=== PATIENT | female | born 1990 | race Caucasian/White ===

== ENCOUNTER → 2019-02-28 | Outpatient (CLI) | payer BC ==
--- NOTE | 2019-02-28 11:57 | Diagnostic Imaging Report ---
INDICATION: survey. TECHNIQUE: Multiple real-time grayscale images were obtained over the gravid uterus. COMPARISON: None. FINDINGS: There is a single live fetus in a breech presentation. heart rate was recorded at 165 beats per minute. Placenta is anterior. Amniotic fluid volume is normal. Cervical length is 4.1 cm. survey does show kidneys, bladder and stomach to be unremarkable. brain is unremarkable. There is a three-vessel cord with normal insertion. spine is unremarkable. Four-chamber heart view is somewhat limited due to position. Biometrical measurements are as follows: Biparietal 4.83 cm, age 20 weeks 5 days. Head circumference 17.62 cm, age 20 weeks 1 days. Abdominal circumference 15.46 cm, age 20 weeks 5 days. Femur length 3.34 cm, age 20 weeks 4 days. Sonographic estimate age: 20 weeks 4 days. Sonographic estimated date of delivery: 07/14/2019. Estimated Weight: 359 gm (+/- 52 gm). LMP percentile: 59%. heart rate: 165 beats per minute. number: 1 of 1. IMPRESSION: Single live IUP 20 weeks 4 days gestational age. Estimated date of confinement sonographically is 07/14/2019. The survey is unremarkable although four-chamber heart view is not well seen due to position and followup could be performed. Dictated by: Dictated on workstation # [id number]
== END ==
LOC: RAD 10:03
PROVIDERS: ATTEND Obstetrics & Gynecology
DX: Z36.89 Encounter for other specified antenatal screening (principal); Z3A.20 20 weeks gestation of pregnancy
CPT/HCPCS: 76805

== ENCOUNTER → 2019-04-25 | Outpatient (CLI) | payer BC ==
--- NOTE | 2019-04-25 12:42 | Diagnostic Imaging Report ---
INDICATION: Follow up heart. TECHNIQUE: Multiple real-time grayscale images were obtained over the gravid uterus. COMPARISON: 02/28/2019. FINDINGS: There is a single live fetus in a cephalic presentation. heart rate was recorded at 146 beats per minute. Placenta is anterior. Amniotic fluid volume is normal. four-chamber heart view is well seen on today's study. Cervical length is approximately 4 cm. IMPRESSION: Single live fetus. Four-chamber heart view is well seen on today's exam. Dictated by: Dictated on workstation # [id number]
== END ==
LOC: RAD 10:36
PROVIDERS: ATTEND Obstetrics & Gynecology
DX: Z34.92 Encounter for supervision of normal pregnancy, unspecified, second trimester (principal); Z3A.00 Weeks of gestation of pregnancy not specified
CPT/HCPCS: 76816

== ENCOUNTER 2019-07-13 02:16 | Inpatient (IN) | payer BC, MEDICAID ==
[~2019-07-13] VITALS: Ht 152.4 cm; Wt 60.4 kg
[2019-07-13] VITALS (11 sets, daily range): BP systolic 99–140; BP diastolic 54–73
--- NOTE | 2019-07-13 02:22 | NUR ---
MALLY BOLES presented to unit via wc from ED, accompanied by staff and family, with c/o CONTRACTIONS. MALLY BOLES weighed, gowned, voided, and to bed. EFHM and TOCO applied, VS taken. MALLY BOLES oriented to bed controls, call light, TV, heat, and A/C controls.
--- NOTE | 2019-07-13 02:40 | NUR ---
Dr. Rodríguez called regarding pt, no answer.
--- NOTE | 2019-07-13 02:41 | NUR ---
Dr. gutierrez called and updated on pt's status and cervical dilation, admit orders received.
[2019-07-13] MEDS ORDERED: D5 LR IV SOLUTION 1,000 ML IV ONE (02:42)
--- NOTE | 2019-07-13 02:46 | NUR ---
dr. sigala called back and will take pt. dr. gutierrez called and updated that dr. sigala will be here for delivery
--- NOTE | 2019-07-13 02:48 | NUR ---
SROM noted, clear fluid, . Nurses present at this time, deborah Rivera, jessica benz and jenelle guadalupe rn. Dr. sigala called and updated on pt's status, she is enroute.
[2019-07-13] MEDS ORDERED: OXYTOCIN/NORMAL SALINE 500 ML IV ONE (02:52)
[2019-07-13] MEDS ORDERED: D5 LR IV SOLUTION 1,000 ML IV SCH (03:02)
[2019-07-13] MEDS ORDERED: KETOROLAC 30 MG/ML VIAL ONE (03:08)
[2019-07-13 03:10] LABS: BASOPHILS % (AUTO) 0 % (0-10); EOSINOPHILS # (AUTO) 0.1 10^3/uL (0.0-0.3); EOSINOPHILS % (AUTO) 1 % (0-10); HEMATOCRIT 39 % (35-52); HEMOGLOBIN 13.1 G/DL (11.5-16.0); LYMPHOCYTES # (AUTO) 3.2 X 10^3 (1.0-4.0); LYMPHOCYTES % (AUTO) 20 % (12-44); MEAN CORPUSCULAR HEMOGLOBIN 30 PG (25-34); MEAN CORPUSCULAR HGB CONC 34 G/DL (32-36); MEAN CORPUSCULAR VOLUME 89 FL (80-99); MEAN PLATELET VOLUME 11.1 FL (7.4-10.4); MONOCYTES % (AUTO) 7 % (0-12); NEUTROPHILS # (AUTO) 11.6 X 10^3 (1.8-7.8); NEUTROPHILS % (AUTO) 73 % (42-75); PLATELET COUNT 223 10^3/uL (130-400); WHITE BLOOD COUNT 15.9 10^3/uL (4.3-11.0)
[2019-07-13] MEDS ORDERED: OXYTOCIN/NORMAL SALINE 500 ML IV SCH (03:12)
[2019-07-13] MEDS ORDERED: TETANUS,DIPTH,PERTUSS P/F (BOOSTRIX) 0.5 ML VIAL IM ONE (03:15)
[2019-07-13] MEDS ORDERED: KETOROLAC 30 MG/ML VIAL IVP ONE (03:15)
[2019-07-13] MEDS ORDERED: MEASLES,MUMPS,RUBELLA 1 EA INJ SQ ONE (03:15)
[2019-07-13] MEDS ORDERED: BENZOCAINE/MENTHOL (DERMOPLAST) 56 ML CAN TP PRN (03:15)
[2019-07-13] MEDS ORDERED: MISOPROSTOL 200 MCG (CYTOTEC) TABLET PO PRN (03:15)
[2019-07-13] MEDS ORDERED: WITCH HAZEL(TUCKS) 40 EA JAR TOP PRN (03:15)
--- NOTE | 2019-07-13 03:15 | History & Physical-OB ---
OB - Chief Complaint & HPI Date/Time Date of Admission: Date of Admission: Jul 13, 2019 at 02:48 Allergies and Home Medications Allergies Coded Allergies: No Known Drug Allergies (Unverified , 07/13/19) Home Medications No Active Prescriptions or Reported Meds OB - Admission Exam Physical Exam Vitals: Vital Signs 07/13/19 02:43 Temp 36.3 Pulse 76 Resp 20 B/P (MAP) 134/69 (90) O2 Delivery Room Air Labs Laboratory Tests Test 07/13/19 02:48 Range/Units White Blood Count 15.9 H 4.3-11.0 10^3/uL Red Blood Count 4.35 4.35-5.85 10^6/uL Hemoglobin 13.1 11.5-16.0 G/DL Hematocrit 39 35-52 % Mean Corpuscular Volume 89 80-99 FL Mean Corpuscular Hemoglobin 30 25-34 PG Mean Corpuscular Hemoglobin Concent 34 32-36 G/DL Red Cell Distribution Width 15.0 H 10.0-14.5 % Platelet Count 223 130-400 10^3/uL Mean Platelet Volume 11.1 H 7.4-10.4 FL Neutrophils (%) (Auto) 73 42-75 % Lymphocytes (%) (Auto) 20 12-44 % Monocytes (%) (Auto) 7 0-12 % Eosinophils (%) (Auto) 1 0-10 % Basophils (%) (Auto) 0 0-10 % Neutrophils # (Auto) 11.6 H 1.8-7.8 X 10^3 Lymphocytes # (Auto) 3.2 1.0-4.0 X 10^3 Monocytes # (Auto) 1.0 0.0-1.0 X 10^3 Eosinophils # (Auto) 0.1 0.0-0.3 10^3/uL Basophils # (Auto) 0.0 0.0-0.1 10^3/uL JACKELYN DANIELS DO Jul 13, 2019 03:15
--- NOTE | 2019-07-13 03:15 | OB Labor & Delivery Record ---
Vag Delivery Note Vag Delivery Note Date of Delivery: 07/13/19 Preoperative Diagnosis: Simi La is a (28 /Para / ,Gestational Age (wks)with [] Postoperative Diagnosis: Same Surgeon: JACKELYN DANIELS Jacquard Loom Carpet Weaver: [] Anesthesia: [] Delivery Type: [] Findings: [] Viable [] , apgars [], weight [] Lacerations: Intact placenta with 3 vessel cord. No nuchal cord, body cord or shoulder dystocia Cytotec 800 mcg placed for hemorrhage prophylaxis Estimated Blood Loss: [] ml Complications: None Condition: Stable Description of Procedure: The patient is a 28 year old female who presented []. She was admitted and informed consent was obtained. Her labor course was remarkable for [] She progressed to complete dilatation and began to push. She was then set up for delivery. The 's head was delivered atraumatically in the [] position. The shoulders and remainder of the infant's body were then delivered without difficulty. Upon delivery, the head was held below the level of the perineum and the mouth and nares were bulb suctioned. The cord was doubly clamped and cut and the was handed off to the pediatric staff. An intact placenta with 3-vessel cord delivered via Jesus and there was found to be minimal bleeding.~ Vigorous fundal massage was performed and the fundus was found to be firm. IV oxytocin was given. Examination of the vagina and perineum revealed a [] laceration repaired in the usual fashion with 3-0 vicryl suture. Following the repair, sponge, instrument and needle counts were correct. Mom and baby were both in stable condition in the labor suite. Vitals - Labs Vital Signs - I&O Vital Signs Date Time Temp Pulse Resp B/P (MAP) Pulse Ox O2 Delivery O2 Flow Rate FiO2 07/13/19 02:43 36.3 76 20 134/69 (90) Room Air Labs Laboratory Tests 07/13/19 02:48: White Blood Count 15.9H, Red Blood Count 4.35, Hemoglobin 13.1, Hematocrit 39, Mean Corpuscular Volume 89, Mean Corpuscular Hemoglobin 30, Mean Corpuscular Hemoglobin Concent 34, Red Cell Distribution Width 15.0H, Platelet Count 223, Mean Platelet Volume 11.1H, Neutrophils (%) (Auto) 73, Lymphocytes (%) (Auto) 20, Monocytes (%) (Auto) 7, Eosinophils (%) (Auto) 1, Basophils (%) (Auto) 0, Neutrophils # (Auto) 11.6H, Lymphocytes # (Auto) 3.2, Monocytes # (Auto) 1.0, Eosinophils # (Auto) 0.1, Basophils # (Auto) 0.0 JACKELYN DANIELS DO Jul 13, 2019 03:15
--- NOTE | 2019-07-13 04:05 | NUR ---
Pt. ambulated to bathroom with standby assist, positive void noted. Pericare performed.
--- NOTE | 2019-07-13 04:50 | NUR ---
Pt. up to bathroom without difficulty, positive void noted. Transferred to PP room 311, accompanied by S.O. and infant. Pt. oriented to room, room service, call light, and thermostat. info folder provided and explained. Fresh Ice water given. No questions or concerns voiced by pt. at this time. Call light within reach.
[2019-07-13] MEDS ORDERED: CATHETER FLUSH 10 ML SYR IV SCH ×2 (06:00)
[2019-07-13] MEDS: ACETAMINOPHEN 500 MG TAB (TYLENOL) PO SCH ×2 (06:13→14:32)
[2019-07-13] MEDS: DOCUSATE SODIUM 100 MG (COLACE) CAP PO SCH ×2 (09:15→22:36)
[2019-07-13] MEDS: PRENATAL VITAMIN 1 EA TAB PO SCH (09:15)
[2019-07-13] MEDS: IBUPROFEN 600 MG (MOTRIN) TAB PO SCH ×3 (09:15→22:36)
[2019-07-13] MEDS: FERROUS SULF 325 MG (IRON) TAB PO SCH (09:15)
--- NOTE | 2019-07-13 16:15 | NUR ---
Rn to pt room. pt sleeping on side. s.o. present at bedside holding infant.
[2019-07-14] MEDS: IBUPROFEN 600 MG (MOTRIN) TAB PO SCH ×2 (03:30→08:54)
[2019-07-14 03:31] VITALS: BP 98/52
[2019-07-14 06:34] LABS: BASOPHILS # (AUTO) 0.1 10^3/uL (0.0-0.1); BASOPHILS % (AUTO) 0 % (0-10); EOSINOPHILS # (AUTO) 0.2 10^3/uL (0.0-0.3); EOSINOPHILS % (AUTO) 1 % (0-10); HEMATOCRIT 38 % (35-52); HEMOGLOBIN 12.4 G/DL (11.5-16.0); LYMPHOCYTES # (AUTO) 2.9 X 10^3 (1.0-4.0); LYMPHOCYTES % (AUTO) 24 % (12-44); MEAN CORPUSCULAR HEMOGLOBIN 29 PG (25-34); MEAN CORPUSCULAR HGB CONC 33 G/DL (32-36); MEAN CORPUSCULAR VOLUME 90 FL (80-99); MEAN PLATELET VOLUME 10.6 FL (7.4-10.4); MONOCYTES % (AUTO) 8 % (0-12); NEUTROPHILS # (AUTO) 8.3 X 10^3 (1.8-7.8); NEUTROPHILS % (AUTO) 67 % (42-75); PLATELET COUNT 189 10^3/uL (130-400); RED CELL DISTRIBUTION WIDTH 15.5 % (10.0-14.5); WHITE BLOOD COUNT 12.4 10^3/uL (4.3-11.0)
[2019-07-14 08:41] VITALS: BP 92/62
[2019-07-14] MEDS: PRENATAL VITAMIN 1 EA TAB PO SCH (08:53)
[2019-07-14] MEDS: DOCUSATE SODIUM 100 MG (COLACE) CAP PO SCH (08:53)
[2019-07-14] MEDS: FERROUS SULF 325 MG (IRON) TAB PO SCH (08:53)
[2019-07-14] MEDS: ACETAMINOPHEN 500 MG TAB (TYLENOL) PO SCH (08:53)
--- NOTE | 2019-07-14 12:02 | Postpartum Progress Note ---
Note Note Day # 1 s/p Subjective: Patient is without complaints. Ambulating, voiding. Tolerating a regular diet w ithout nausea or vomiting. Normal lochia. Pain is well controlled with oral pain medications.breast feeding. [] Objective: 07/14/19 07/14/19 03:31 08:41 Temp 36.7 36.4 Pulse 84 64 Resp 18 18 B/P (MAP) 98/52 (67) 92/62 (72) Pulse Ox 97 97 O2 Delivery Room Air Room Air Laboratory Tests Test 07/14/19 06:15 Range/Units White Blood Count 12.4 H 4.3-11.0 10^3/uL Red Blood Count 4.22 L 4.35-5.85 10^6/uL Hemoglobin 12.4 11.5-16.0 G/DL Hematocrit 38 35-52 % Mean Corpuscular Volume 90 80-99 FL Mean Corpuscular Hemoglobin 29 25-34 PG Mean Corpuscular Hemoglobin Concent 33 32-36 G/DL Red Cell Distribution Width 15.5 H 10.0-14.5 % Platelet Count 189 130-400 10^3/uL Mean Platelet Volume 10.6 H 7.4-10.4 FL Neutrophils (%) (Auto) 67 42-75 % Lymphocytes (%) (Auto) 24 12-44 % Monocytes (%) (Auto) 8 0-12 % Eosinophils (%) (Auto) 1 0-10 % Basophils (%) (Auto) 0 0-10 % Neutrophils # (Auto) 8.3 H 1.8-7.8 X 10^3 Lymphocytes # (Auto) 2.9 1.0-4.0 X 10^3 Monocytes # (Auto) 1.0 0.0-1.0 X 10^3 Eosinophils # (Auto) 0.2 0.0-0.3 10^3/uL Basophils # (Auto) 0.1 0.0-0.1 10^3/uL Physical Exam: General - Alert and oriented, no apparent distress Abdomen - Soft, appropriately tender to palpation, non-distended, fundus firm at umbilicus Extremities - no edema, negative Gary's bilaterally Assessment: 1. post- day # 1, status post spontaneous vaginal delivery. Recovering well, hemodynamically stable Plan: Routine care. Encourage breast feeding. Encourage ambulation. Ferrous sulfate supplementation. Plan for discharge Vitals - Labs Vital Signs - I&O Vital Signs Date Time Temp Pulse Resp B/P (MAP) Pulse Ox O2 Delivery O2 Flow Rate FiO2 07/14/19 08:41 36.4 64 18 92/62 (72) 97 Room Air 07/14/19 03:31 36.7 84 18 98/52 (67) 97 Room Air 07/13/19 22:35 36.9 61 18 104/66 (79) 98 Room Air 07/13/19 18:28 37.3 76 18 109/67 (81) 98 Room Air 07/13/19 12:24 37.0 62 18 99/54 (69) 95 Room Air Labs Laboratory Tests 07/14/19 06:15: White Blood Count 12.4H, Red Blood Count 4.22L, Hemoglobin 12.4, Hematocrit 38, Mean Corpuscular Volume 90, Mean Corpuscular Hemoglobin 29, Mean Corpuscular Hemoglobin Concent 33, Red Cell Distribution Width 15.5H, Platelet Count 189, Mean Platelet Volume 10.6H, Neutrophils (%) (Auto) 67, Lymphocytes (%) (Auto) 24, Monocytes (%) (Auto) 8, Eosinophils (%) (Auto) 1, Basophils (%) (Auto) 0, Neutrophils # (Auto) 8.3H, Lymphocytes # (Auto) 2.9, Monocytes # (Auto) 1.0, Eosinophils # (Auto) 0.2, Basophils # (Auto) 0.1 JACKELYN DANIELS DO Jul 14, 2019 12:02
[2019-07-14] MEDS ORDERED: ACET-77 PO (12:04)
[2019-07-14] MEDS ORDERED: IBUP-844 PO (12:04)
--- NOTE | 2019-07-14 12:07 | Discharge Inst-Women's Service ---
Discharge Inst-Women's Serv Depart Medication/Instructions New, Converted or Re-Newed RX: RX on Chart Problems Reviewed?: Yes Consults/Follow Up Additional Follow Up: Yes Activity Activity: Activity as Tolerated Driving Instructions: You May Drive NO SMOKING: NO SMOKING Nothing Inside Vagina: No Douching, No [place], No Tampons Diet Discharge Diet: No Restrictions Symptoms to Report to : Swelling Increased, Pain Increased, Fever Over 101 Degrees F, Vaginal Bleeding Increase, Cramps in Feet or Legs, Vaginal Discharge Foul For Any Problems or Questions: Contact Your Physician JACKELYN DANIELS DO Jul 14, 2019 12:07
--- NOTE | 2019-07-14 14:13 | NUR ---
prescriptions called to [facility] pharmacy per pt request
--- NOTE | 2019-07-14 14:40 | NUR ---
Discharged to home. Ambulates self downstairs accompanied by staff member with belongings in hand to private vehicle.
== END 2019-07-14 14:40 | disposition home or self-care (01) | DRG 807 ==
LOC: WSo 02:16 → LDRP 02:20 → WSo 02:47 → LDRP 02:48
PROVIDERS: ADMIT Obstetrics & Gynecology; ATTEND Obstetrics & Gynecology
PROC: 10E0XZZ Delivery of Products of Conception, External Approach (ICD-10-PCS; principal; 2019-07-13)
PROC: 0HQ9XZZ Repair Perineum Skin, External Approach (ICD-10-PCS; 2019-07-13)
DX: O70.0 First degree perineal laceration during delivery (principal); Z3A.38 38 weeks gestation of pregnancy; Z37.0 Single live birth
CPT/HCPCS: 36415; 85025; 86850; 86900; 86901; 99212

== ENCOUNTER → 2021-10-04 | Outpatient (CLI) | payer MEDICAID ==
[~2021-10-04] MED LIST: ACET-78 PO; IBUP-844 PO
--- NOTE | 2021-10-04 14:16 | Diagnostic Imaging Report ---
INDICATION: survey. TECHNIQUE: Multiple real-time grayscale images were obtained over the gravid uterus. COMPARISON: None FINDINGS: There is a single live fetus in a cephalic presentation. heart rate was recorded at 155 bpm. Placenta is posterior. Amniotic fluid volume is normal. Cervical length is 4.6 cm. kidneys, bladder and stomach are unremarkable. brain is unremarkable. There is a four-chamber heart. There is a three-vessel cord with normal insertion. spine is unremarkable. Biometrical measurements are as follows: Biparietal 5.15 cm, age 21 weeks 5 days. Head circumference 19.24 cm, age 21 weeks 4 days. Abdominal circumference 15.37 cm, age 20 weeks 4 days. Femur length 3.19 cm, age 20 weeks 0 days. Sonographic estimate age: 21 weeks 0 days. Sonographic estimated date of delivery: 02/14/2022. Estimated Weight: 354 gm (+/- 52 gm). LMP percentile: 45%. heart rate: 155 beats per minute. number: 1 of 1. IMPRESSION: Single live IUP 21 weeks 0 days gestational age. Estimated date of confinement sonographically is 02/14/2022. Dictated by: Dictated on workstation # [id number]
== END ==
LOC: RAD 13:00
PROVIDERS: ATTEND Nurse Practitioner Women's Health
DX: Z34.02 Encounter for supervision of normal first pregnancy, second trimester (principal); Z3A.21 21 weeks gestation of pregnancy
CPT/HCPCS: 76805

== ENCOUNTER 2022-02-18 08:51 | Inpatient (IN) | payer MEDICAID ==
[2022-02-18] VITALS (18 sets, daily range): BP systolic 106–128; BP diastolic 51–73
[~2022-02-18] VITALS: Ht 152.4 cm; Wt 56.2 kg
[2022-02-18] MEDS ORDERED: MINERAL OIL 30 ML TOP PRN (09:15)
[2022-02-18] MEDS ORDERED: D5 LR IV SOLUTION 1,000 ML IV ONE (09:33)
[2022-02-18] MEDS: D5 LR IV SOLUTION 1,000 ML IV SCH ×2 (09:45→17:45)
[2022-02-18 10:09] LABS: BASOPHILS # (AUTO) 0.1 10^3/uL (0.0-0.1); BASOPHILS % (AUTO) 1 % (0-10); EOSINOPHILS # (AUTO) 0.1 10^3/uL (0.0-0.3); EOSINOPHILS % (AUTO) 1 % (0-10); HEMATOCRIT 34 % (35-52); HEMOGLOBIN 10.9 g/dL (11.5-16.0); LYMPHOCYTES # (AUTO) 2.8 10^3/uL (1.0-4.0); LYMPHOCYTES % (AUTO) 23 % (12-44); MEAN CORPUSCULAR HEMOGLOBIN 27 pg (25-34); MEAN CORPUSCULAR HGB CONC 32 g/dL (32-36); MEAN CORPUSCULAR VOLUME 83 fL (80-99); MEAN PLATELET VOLUME 10.9 fL (9.0-12.2); MONOCYTES # (AUTO) 0.7 10^3/uL (0.0-1.0); MONOCYTES % (AUTO) 5 % (0-12); NEUTROPHILS # (AUTO) 8.7 10^3/uL (1.8-7.8); NEUTROPHILS % (AUTO) 71 % (42-75); PLATELET COUNT 225 10^3/uL (130-400); WHITE BLOOD COUNT 12.3 10^3/uL (4.3-11.0)
--- NOTE | 2022-02-18 12:40 | History & Physical-OB/GYN ---
PEDERSONRENETTA Rey 02/18/22 1240: OB - Chief Complaint & HPI Date/Time Date of Admission: Date of Admission: February 18, 2022 at 09:10 Date seen by a Provider: February 18, 2022 Time Seen by a Provider: 12:37 Chief Complaint/History OB-Reason for Admission/Chief: Onset of Labor Hx : 3 Hx Para: 2 Expected Date of Delivery: March 01, 2022 Gestational Age in Weeks: 40 Gestational Age in Days: 0 Allergies and Home Medications Allergies Coded Allergies: No Known Drug Allergies (Unverified , 07/13/19) Patient Home Medication List Acetaminophen (Acetaminophen) 500 Mg Tablet, 1,000 MG PO Q8HR Prescribed by: JACKELYN DANIELS on 07/14/19 1204 Ibuprofen (Ibu) 600 Mg Tablet, 600 MG PO Q6HR Prescribed by: JACKELYN DANIELS on 07/14/19 1204 OB - History Hx of Present Care: Yes Ultrasounds: Normal mid trimester US Patient Past Medical History NC Immunizations Influenza Vaccine Up-to-Date: No; Not Current Second COVID19 Vaccination: february 2021 Hepatitis A: No Hepatitis B: No OB - Admission Exam Physical Exam HEENT: NCAT Heart: Rhythm Normal Lungs: Clear Abdomen: Gravid Extremities: Normal Membranes: Intact Heart Rate: 150's Accelerations: Accelerations Present Decelerations: No Decelerations Labs Laboratory Tests Test 02/18/22 09:59 Range/Units White Blood Count 12.3 H 4.3-11.0 10^3/uL Red Blood Count 4.05 3.80-5.11 10^6/uL Hemoglobin 10.9 L 11.5-16.0 g/dL Hematocrit 34 L 35-52 % Mean Corpuscular Volume 83 80-99 fL Mean Corpuscular Hemoglobin 27 25-34 pg Mean Corpuscular Hemoglobin Concent 32 32-36 g/dL Red Cell Distribution Width 14.0 10.0-14.5 % Platelet Count 225 130-400 10^3/uL Mean Platelet Volume 10.9 9.0-12.2 fL Immature Granulocyte % (Auto) 1 % Neutrophils (%) (Auto) 71 42-75 % Lymphocytes (%) (Auto) 23 12-44 % Monocytes (%) (Auto) 5 0-12 % Eosinophils (%) (Auto) 1 0-10 % Basophils (%) (Auto) 1 0-10 % Neutrophils # (Auto) 8.7 H 1.8-7.8 10^3/uL Lymphocytes # (Auto) 2.8 1.0-4.0 10^3/uL Monocytes # (Auto) 0.7 0.0-1.0 10^3/uL Eosinophils # (Auto) 0.1 0.0-0.3 10^3/uL Basophils # (Auto) 0.1 0.0-0.1 10^3/uL Immature Granulocyte # (Auto) 0.1 0.0-0.1 10^3/uL OB - Assessment/Plan/Diagnosis Assessment Assessment: active labor Admission Dx 31 yo @ 40.0 weeks gestation Active labor JRERY IQBAL 02/18/22 1358: OB - Chief Complaint & HPI Chief Complaint/History Admission Nurse Assessment Rev: Yes Allergies and Home Medications Allergies Coded Allergies: No Known Drug Allergies (Unverified , 07/13/19) Patient Home Medication List Home Medication List Reviewed: Yes Acetaminophen (Acetaminophen) 500 Mg Tablet, 1,000 MG PO Q8HR Prescribed by: JACKELYN DANIELS on 07/14/19 1204 Ibuprofen (Ibu) 600 Mg Tablet, 600 MG PO Q6HR Prescribed by: JACKELYN DANIELS on 07/14/19 1204 OB - History Hx of Present Obstetrical Complications: None Medical Complications: None Patient Past Medical History n/a OB - Admission Exam Physical Exam Cervical Dilatation: 6cm Effacement: 100% Station: 0 Heart Rate: 130's Short Term Variability: Present Correction Variability: Average (6-25) Contractions on Admission: < 5 Minutes Apart Intensity: Firm OB - Assessment/Plan/Diagnosis Assessment Assessment: active labor Admission Status: Inpatient Order (span 2 midnights) Reason for Inpatient Admission: Active labor at term Plan Plan: Expectant Management Other Plan Verification and Attestation of Medical Student E/M Service A medical student performed and documented this service in my presence. I reviewed and verified all information documented by the medical student and made modifications to such information, when appropriate. I personally performed the physical exam and medical decision making. Jerry Rey Iqbal, February 18, 2022,13:58 Supervisory-Addendum Brief Verification & Attestation Participated in pt care: history Personally performed: exam Care discussed with: Medical Student Procedures: performed Verification and Attestation of Medical Student E/M Service A medical student performed and documented this service in my presence. I reviewed and verified all information documented by the medical student and made modifications to such information, when appropriate. I personally performed the physical exam and medical decision making. Jerry Iqbal, February 18, 2022,14:01 RENETTA PEDERSON February 18, 2022 12:40 JERRY IQBAL DO February 18, 2022 13:58
[2022-02-18] MEDS ORDERED: OXYTOCIN PRE-MIX DRIP 1,000 ML IV ONE (13:41)
[2022-02-18] MEDS ORDERED: CATHETER FLUSH 10 ML SYR IV SCH ×2 (14:00→22:00)
[2022-02-18] MEDS: OXYTOCIN PRE-MIX DRIP 500 ML IV SCH ×2 (15:59→16:30)
--- NOTE | 2022-02-18 16:10 | OB Labor & Delivery Record ---
L&D History Date of Service Date of Service: February 18, 2022 History Expected Date of Delivery: February 18, 2022 Gestational Age in Weeks: 40 Hx : 3 Hx Para: 2 Complications Events: Routine care Operative Indications (Cesarea: N/A-Vaginal Delivery Intrapartal Events: None L&D Stage1 Stage One Onset of Labor - Date: February 18, 2022 Monitors and Tracing Monitor Mode: External Heart Rate: 140 Monitor Accelerations: Uniform Station: -1 Long-Term Variability: Average (6-10) Short Term Variability: Present Presentation: Vertex Vital Signs VS - Last 72 Hours, by Label 02/18/22 02/18/22 02/18/22 02/18/22 09:16 10:20 10:50 11:50 Temp 36.8 Pulse 88 84 90 84 Resp 18 16 16 16 B/P (MAP) 114/58 (76) 128/56 (80) 117/56 (76) Pulse Ox 99 O2 Delivery Room Air 02/18/22 02/18/22 02/18/22 02/18/22 12:30 13:00 13:30 14:00 Temp 37.4 Pulse 103 96 92 82 Resp 16 16 16 16 B/P (MAP) 108/55 (72) 113/67 (82) 111/71 (84) 109/56 (73) Rupture of Membranes Spontaneous Ruture of Membrane: No Amniotic Membrane Rupture Time: 15:15 Amniotic Membrane Fluid Desc.: Bloody Vaginal Bleeding Description: Normal Show Progress/Notes Patient admitted in active phase labor 6cm, progressed without augmentation to 9 where AROM was performed. No analgesia administered. Patient then rapidly progressed after arom and position to complete and . L&D Stage2 Stage Two Stage II Date: February 18, 2022 Monitors and Tracing Monitor Mode: External Heart Rate: 140 Long-Term Variability: Average (6-10) Short Term Variability: Present Position: Right Occiput Anterior Presentation: Vertex Cord Descript/Complications Cord Vessel Description: 3 Vessels Delivery Type Infant Delivery Method: Spontaneous Vaginal Anterior Shoulder: Right Episiotomy/Perineal Laceration Laceraction(s)/Extensions: Yes Degree (describe repair) Bilateral labia minora and mons lacerations repaired using 3-0 rapid in usual fashion reapproximating the defect Condition of Delivery 1 minute Comment: 8 5 minute Comment: 9 Notes Live male infant 7lbs 11 oz Condition of Infant Condition of Infant: Living Exam: No Observed Abnormalities Resuscitation Resuscitation: N/A - Spontaneous Resp L&D Stage3 Stage Three Stage III Date: February 18, 2022 Pictocin Pitocin Administration Comment: 30 mu wide open after delivery of placenta Placenta Delivery Placenta Delivery: Spontaneous Delivery Summary Summary Estimated blood loss (mL): 300 Attending at delivery: Hunter Iqbal DO Condition of Delivery Examined: Cervix Examined, Uterus Explored Post Hemorrhage: No Condition of Mother stable Condition of Infant (s) stable HUNTER IQBAL DO February 18, 2022 16:10
[2022-02-18] MEDS ORDERED: KETOROLAC 30 MG/ML VIAL ONE (16:14)
[2022-02-18] MEDS ORDERED: NALOXONE 0.4 MG/ML 1 ML (NARCAN) VIAL IV PRN (16:15)
[2022-02-18] MEDS ORDERED: KETOROLAC 30 MG/ML VIAL IVP ONE (16:15)
[2022-02-18] MEDS ORDERED: BENZOCAINE/MENTHOL (DERMOPLAST) 56 ML CAN TP PRN (16:15)
[2022-02-18] MEDS ORDERED: WITCH HAZEL(TUCKS) 40 EA JAR TOP PRN (16:15)
[2022-02-18] MEDS ORDERED: HYDROcodone/APAP 5 MG/325 MG (LORTAB) TAB PO PRN (16:15)
[2022-02-18] MEDS ORDERED: TETANUS,DIPTH,PERTUSS P/F (BOOSTRIX) 0.5 ML VIAL IM ONE (16:15)
[2022-02-18] MEDS ORDERED: MEASLES,MUMPS,RUBELLA 1 EA INJ SQ ONE (16:15)
[2022-02-18] MEDS ORDERED: DIBUCAINE 1% OINTMENT 30 GM TUBE TOP PRN (16:15)
[2022-02-18] MEDS ORDERED: LIDOCAINE/EPI 2% 1:200,00 (XYLOCAINE) 10 ML VIAL INJ ONE (17:45)
[2022-02-18] MEDS: IBUPROFEN 600 MG (MOTRIN) TAB PO SCH (21:25)
[2022-02-18] MEDS: DOCUSATE SODIUM 100 MG (COLACE) CAP PO SCH (21:25)
[2022-02-19 03:01] VITALS: BP 95/53
[2022-02-19] MEDS: IBUPROFEN 600 MG (MOTRIN) TAB PO SCH ×4 (03:04→21:53)
[2022-02-19 06:00] LABS: BASOPHILS # (AUTO) 0.1 10^3/uL (0.0-0.1); BASOPHILS % (AUTO) 0 % (0-10); EOSINOPHILS # (AUTO) 0.1 10^3/uL (0.0-0.3); EOSINOPHILS % (AUTO) 1 % (0-10); HEMATOCRIT 29 % (35-52); HEMOGLOBIN 9.4 g/dL (11.5-16.0); LYMPHOCYTES # (AUTO) 3.3 10^3/uL (1.0-4.0); LYMPHOCYTES % (AUTO) 24 % (12-44); MEAN CORPUSCULAR HEMOGLOBIN 27 pg (25-34); MEAN CORPUSCULAR HGB CONC 32 g/dL (32-36); MEAN CORPUSCULAR VOLUME 83 fL (80-99); MONOCYTES # (AUTO) 0.9 10^3/uL (0.0-1.0); MONOCYTES % (AUTO) 7 % (0-12); NEUTROPHILS # (AUTO) 9.4 10^3/uL (1.8-7.8); NEUTROPHILS % (AUTO) 68 % (42-75); PLATELET COUNT 210 10^3/uL (130-400); WHITE BLOOD COUNT 13.8 10^3/uL (4.3-11.0)
[2022-02-19] MEDS: DOCUSATE SODIUM 100 MG (COLACE) CAP PO SCH ×2 (08:46→21:53)
[2022-02-19] MEDS: PRENATAL VITAMIN 1 EA TAB PO SCH (08:46)
[2022-02-19] MEDS: FERROUS SULF 325 MG (IRON) TAB PO SCH (08:46)
[2022-02-19 08:52] VITALS: BP 102/56
--- NOTE | 2022-02-19 12:54 | Postpartum Progress Note ---
Note Note Day # 1 Subjective: Patient is without complaints. Ambulating, voiding. Tolerating a regular diet without nausea or vomiting. Normal lochia. Pain is well controlled with oral pain medications. Objective: Physical Exam: General - Alert and oriented, no apparent distress Abdomen - Soft, appropriately tender to palpation, non-distended, fundus firm at umbilicus Extremities - no edema, negative Gary's bilaterally Assessment: PPD 1 NVD Acute blood loss anemia Plan: Routine care. Encourage breast feeding. Encourage ambulation. Ferrous sulfate supplementation. Plan for discharge today pending infant release Vitals - Labs Vital Signs - I&O Vital Signs Date Time Temp Pulse Resp B/P (MAP) Pulse Ox O2 Delivery O2 Flow Rate FiO2 02/19/22 08:52 36.6 81 18 102/56 (71) 98 Room Air 02/19/22 03:01 36.3 75 16 95/53 (67) 97 02/18/22 21:20 36.9 87 16 106/51 (69) 02/18/22 17:08 74 16 116/55 (75) 02/18/22 16:53 76 16 119/59 (79) 02/18/22 16:38 37.5 65 16 109/56 (73) 02/18/22 16:23 74 16 113/54 (73) 02/18/22 16:08 83 16 110/58 (75) 02/18/22 15:58 37.0 88 16 115/61 (79) 02/18/22 15:43 02/18/22 15:30 102 16 120/73 (89) 02/18/22 15:15 02/18/22 15:00 93 16 113/63 (80) 02/18/22 14:45 02/18/22 14:30 82 16 126/61 (82) 02/18/22 14:15 02/18/22 14:00 82 16 109/56 (73) 02/18/22 13:30 37.4 92 16 111/71 (84) 02/18/22 13:00 96 16 113/67 (82) I & O 02/19/22 06:59 Intake Total 1000 ml Balance 1000 ml Labs Laboratory Tests 02/19/22 05:44: White Blood Count 13.8H, Red Blood Count 3.48L, Hemoglobin 9.4L, Hematocrit 29L, Mean Corpuscular Volume 83, Mean Corpuscular Hemoglobin 27, Mean Corpuscular Hemoglobin Concent 32, Red Cell Distribution Width 14.2, Platelet Count 210, Mean Platelet Volume 11.0, Immature Granulocyte % (Auto) 0, Neutrophils (%) (Auto) 68, Lymphocytes (%) (Auto) 24, Monocytes (%) (Auto) 7, Eosinophils (%) (Auto) 1, Basophils (%) (Auto) 0, Neutrophils # (Auto) 9.4H, Lymphocytes # (Auto) 3.3, Monocytes # (Auto) 0.9, Eosinophils # (Auto) 0.1, Basophils # (Auto) 0.1, Immature Granulocyte # (Auto) 0.1 HUNTER IQBAL DO February 19, 2022 12:54
--- NOTE | 2022-02-19 12:55 | Discharge Inst-Women's Service ---
Discharge Inst-Women's Serv Depart Medication/Instructions New, Converted or Re-Newed RX: Transmitted to Pharmacy Final Diagnosis PPD 1 NVD Problems Reviewed?: Yes Consults/Follow Up Additional Follow Up: Yes Orders/Referrals Dr. Iqbal in 6 weeks Activity Activity: Activity as Tolerated Driving Instructions: No Driving for 1 Week NO SMOKING: NO SMOKING Nothing Inside Vagina: No Douching, No [place], No Tampons Diet Discharge Diet: No Restrictions Symptoms to Report to : Bleeding Excessive, Pain Increased, Fever Over 101 Degrees F, Vaginal Bleeding Increase, Questions/Concerns For Any Problems or Questions: Contact Your Physician HUNTER IQBAL DO February 19, 2022 12:55
[2022-02-19] MEDS ORDERED: ACHD5005 PO (12:57)
[2022-02-19] MEDS ORDERED: IBUP-844 PO (12:57)
[2022-02-19] MEDS ORDERED: FERR325T24 PO (12:57)
[2022-02-19] MEDS ORDERED: BENZ78AE5 TP (12:57)
[2022-02-19 15:22] VITALS: BP 102/53
[2022-02-19 21:53] VITALS: BP 108/58
[2022-02-20] MEDS: IBUPROFEN 600 MG (MOTRIN) TAB PO SCH ×2 (04:27→10:30)
[2022-02-20 04:30] VITALS: BP 109/62
--- NOTE | 2022-02-20 09:40 | Postpartum Progress Note ---
Note Note Day # 2 Subjective: Patient is without complaints. Ambulating, voiding. Tolerating a regular diet without nausea or vomiting. Normal lochia. Pain is well controlled with oral pain medications. Infant held overnight for mod risk bili levels Objective: Physical Exam: General - Alert and oriented, no apparent distress Abdomen - Soft, appropriately tender to palpation, non-distended, fundus firm at umbilicus Extremities - no edema, negative Gary's bilaterally Assessment: PPD 2 NVD Plan: Routine care. Encourage breast feeding. Encourage ambulation. Ferrous sulfate supplementation. Plan for discharge today Vitals - Labs Vital Signs - I&O Vital Signs Date Time Temp Pulse Resp B/P (MAP) Pulse Ox O2 Delivery O2 Flow Rate FiO2 02/20/22 04:30 36.8 66 18 109/62 (78) 98 Room Air 02/19/22 21:53 37.2 73 18 108/58 (75) 97 Room Air 02/19/22 15:22 36.6 82 18 102/53 (69) 98 Room Air HUNTER IQBAL DO February 20, 2022 09:40
[2022-02-20] MEDS: FERROUS SULF 325 MG (IRON) TAB PO SCH (10:30)
[2022-02-20] MEDS: DOCUSATE SODIUM 100 MG (COLACE) CAP PO SCH (10:30)
[2022-02-20] MEDS: PRENATAL VITAMIN 1 EA TAB PO SCH (10:30)
[2022-02-20 10:31] VITALS: BP 106/61
== END 2022-02-20 13:10 | disposition home or self-care (01) | DRG 806 ==
LOC: LDRP 08:51 → WSo 08:51 → LDRP 09:10 → WSo 09:10 → LDRP 18:00
PROVIDERS: ADMIT Obstetrics & Gynecology; ATTEND Obstetrics & Gynecology
PROC: 10E0XZZ Delivery of Products of Conception, External Approach (ICD-10-PCS; principal; 2022-02-18)
PROC: 0UQMXZZ Repair Vulva, External Approach (ICD-10-PCS; 2022-02-18)
DX: O48.0 Post-term pregnancy (principal); D62 Acute posthemorrhagic anemia; Z37.0 Single live birth; O70.0 First degree perineal laceration during delivery; O90.81 Anemia of the puerperium; Z3A.40 40 weeks gestation of pregnancy
CPT/HCPCS: 36415; 85025; 86850; 86900; 86901; 99212

== ENCOUNTER → 2022-07-13 | Outpatient (CLI) | payer MEDICAID ==
[~2022-07-13] MED LIST changes: +ACHD5005 PO; +BENZ78AE5 TP; +FERR325T24 PO
--- NOTE | 2022-07-13 10:37 | Diagnostic Imaging Report ---
PROCEDURE: Pelvic comp/transvaginal sonogram. TECHNIQUE: Complete transabdominal and transvaginal pelvic ultrasound was performed. In addition, limited pelvic Doppler was performed. INDICATION: IUD strings loss. FINDINGS: The uterus is anteverted measuring 6.0 x 3.3 x 4.1 cm. The endometrium is 4 mm in thickness. The IUD is not well visualized within the endometrium and may be absent. There is no myometrial mass. The right ovary measures 2.4 x 1.5 x 2.0 cm and the left ovary measures 2.0 x 1.8 x 1.8 cm. Both ovaries contain follicles. There is blood flow to both ovaries. No free fluid is seen. IMPRESSION: The IUD is not visualized on this exam. The study is otherwise unremarkable. Dictated by: Dictated on workstation # [id number]
== END ==
LOC: RAD 09:29
PROVIDERS: ATTEND Obstetrics & Gynecology
DX: T83.8 Other specified complications of genitourinary prosthetic devices, implants and grafts (principal)
CPT/HCPCS: 76830; 76856

== ENCOUNTER → 2022-07-14 | Outpatient (CLI) | payer MEDICAID ==
--- NOTE | 2022-07-14 11:02 | Diagnostic Imaging Report ---
INDICATION: Malposition of IUD. There is an IUD projecting over the pelvis. It is oriented horizontally. IMPRESSION: IUD is oriented horizontally just to the right of midline in the mid pelvis. Dictated by: Dictated on workstation # [id number]
--- NOTE | 2022-07-14 11:04 | Diagnostic Imaging Report ---
INDICATION: IUD. KUB at 10:51 AM There is an IUD in the lower pelvis eccentric to the right oriented horizontally. IMPRESSION: The IUD is oriented horizontally in the right lower pelvis. Dictated by: Dictated on workstation # [id number]
== END ==
LOC: RAD 10:31
PROVIDERS: ATTEND Obstetrics & Gynecology
DX: T83.32XA Displacement of intrauterine contraceptive device, initial encounter (principal)
CPT/HCPCS: 72170; 74019

== ENCOUNTER 2022-07-25 13:49 | Outpatient (CLI) | payer MEDICAID ==
[~2022-07-25] VITALS: Ht 152.4 cm; Wt 44.4 kg
[2022-07-27] MEDS ORDERED: ACHD5005 PO (10:35)
== END 2022-07-26 09:36 | disposition home or self-care (01) ==
LOC: PREOP 13:49
PROVIDERS: ATTEND Surgery
DX: Z01.818 Encounter for other preprocedural examination (principal)

== ENCOUNTER 2022-07-27 06:01 | Day surgery (SDC) | payer MEDICAID ==
[~2022-07-27] VITALS: Ht 152 cm; Wt 44.4 kg
[2022-07-27] VITALS (8 sets, daily range): BP systolic 95–125; BP diastolic 43–84
[2022-07-27] MEDS ORDERED: ceFAZolin INJECTION 1,000 MG in NS (IVPB) 50 ML IV ONE (06:15)
[2022-07-27] MEDS: LACTATED RINGERS 1,000 ML IV PRN ×2 (06:45→08:35)
[2022-07-27] MEDS ORDERED: ONDANSETRON 4 MG/2 ML (SDV) Z0FRAN ONE (07:04)
[2022-07-27] MEDS ORDERED: NEOSTIGMINE 3 MG/3 ML VIAL ONE (07:04)
[2022-07-27] MEDS ORDERED: proPOfol 200 MG/20 ML (DIPRIVAN) VIAL IV ONE (07:04)
[2022-07-27] MEDS ORDERED: ROCURONIUM 10 MG/ML 5 ML SYRINGE IV ONE (07:04)
[2022-07-27] MEDS ORDERED: fentaNYL INJ 100 MCG/2 ML AMP ONE (07:04)
[2022-07-27] MEDS ORDERED: MIDAZOLAM 2 MG/2 ML (VERSED) VIAL ONE (07:04)
[2022-07-27] MEDS ORDERED: GLYCOPYRROLATE 0.2 MG/ML (ROBINUL) 2 ML VIAL ONE (07:04)
[2022-07-27] MEDS ORDERED: LIDOCAINE PF 2% 5 ML (XYLOCAINE) VIAL ONE (07:04)
--- NOTE | 2022-07-27 07:26 | Progress Note-Pre Operative ---
Pre-Operative Progress Note Date of Available H&P: Jul 27, 2022 Date H&P Reviewed: Jul 27, 2022 Time H&P Reviewed: 07:25 History & Physical: H&P Reviewed, Patient Examed, No changes noted Pre-Operative Diagnosis: IUD strings lost. Umbilical hernia repair HUNTER IQBAL DO Jul 27, 2022 07:26
--- NOTE | 2022-07-27 07:29 | History & Physical-Surgical ---
HPO-Surgical History of Present Illness Chief Complaint: Umbilical hernia, IUD strings lost Diagnosis/Surgical Indication: IUD strings lost. Umbilical hernia repair Procedure: HYSTEROSCOPY POSSIBLE DIAGNOSTIC LAPAROSCOPY WITH RETRIEVAL OF IUD OPEN Date of Surgery: Jul 27, 2022 Allergies and Home Medications Allergies Coded Allergies: No Known Drug Allergies (Unverified , 07/26/22) Patient Home Medication List Home Medication List Reviewed: Yes No Active Prescriptions or Reported Meds Past Aziakyo-Mhyaxb-Ueryiy Hx Patient Social History Smoking Status: Never a Smoker Recent Hopitalizations: No Seasonal Allergies Seasonal Allergies: No Surgeries Yes (HERNIA SX INFANT) Respiratory No Cardiovascular No Neurological Yes Headaches /Migraines Genitourinary No Gastrointestinal No Musculoskeletal No Endocrine History of Endocrine Disorders: No HEENT History of HEENT Disorders: No Cancer No Psychosocial History of Psychiatric Problem: No Integumentary History of Skin or Integumenta: No Blood Transfusions History of Blood Disorders: No Family Medical History Family Hx: Patient reports no known family medical history. Exam Vital Signs Vital Signs 07/27/22 06:20 Temp 36.9 Pulse 91 Resp 18 B/P (MAP) 106/84 (91) Pulse Ox 98 O2 Delivery Room Air Capillary Refill : General Appearance: Alert, Oriented X3 HEENT: Atraumatic Respiratory: Clear to Auscultation Cardiovascular: Regular Rate Abdominal: Normal Bowel Sounds Extremities: No Clubbing Skin: No Rashes Neuro: Normal Gait Psych/Mental Status: Mental Status NL Assessment/Plan Assessment and Plan P: IUD retrieval possible hysteroscopy poss dx laparoscopy Repair umbilical hernia Admission Diagnosis 31 yo female with IUD strings lost Umbilical hernia Admission Status: Other (Same Day Surgery) HUNTER IQBAL DO Jul 27, 2022 07:29
[2022-07-27] MEDS ORDERED: BUPIVACAINE 0.25% 30 ML (SENSORCAINE) VIAL ONE (07:35)
[2022-07-27] MEDS ORDERED: BUP/EPI 0.5% 1:200,000 (MARCAINE) 10ML VIAL IJ ONE (07:36)
[2022-07-27] MEDS: BUP/EPI 0.5% 1:200,000 (MARCAINE) 10ML VIAL IJ ONE (08:43)
--- NOTE | 2022-07-27 09:21 | Progress Note-Post Operative ---
Post-Operative Progess Note Surgeon (s)/Crew Caller (s) Surgeon RUTHIE ISBELL MD Crew Caller: bahman paulino INSPECTION MACHINE TENDER Pre-Operative Diagnosis IUD strings lost. Umbilical hernia repair Post-Operative Diagnosis same Procedure & Operative Findings Date of Procedure 07/27/22 Procedure Performed/Findings open umbilical hernia repair. Anesthesia Type get Estimated Blood Loss Estimated blood loss (mL): minimal Specimens/Packing Specimens Removed none RUTHIE ISBELL MD Jul 27, 2022 09:21
[2022-07-27] MEDS ORDERED: SEVOFLURANE (ULTANE) 15 ML INHAL SOLN ONE (09:28)
--- NOTE | 2022-07-27 09:39 | Anesthesia-General Post-Op ---
General Patient Condition Mental Status/LOC: Same as Preop Cardiovascular: Satisfactory Nausea/Vomiting: Absent Respiratory: Satisfactory Pain: Controlled Complications: Absent Post Op Complications Complications None Follow Up Care/Instructions Patient Instructions None needed. Anesthesia/Patient Condition Patient Condition Patient is awake in PACU and doing well, no complaints, stable vital signs, no apparent adverse anesthesia problems. No complications reported per nursing. KATJA GUZMAN DO Jul 27, 2022 09:39
[2022-07-27] MEDS ORDERED: morphine INJ 10 MG/ML 1ML (SYR OR VIAL) IVP ONE (09:45)
[2022-07-27] MEDS ORDERED: HYDROmorphone 2 MG/ML VIAL (DILAUDID) IV ONE (09:45)
[2022-07-27] MEDS ORDERED: ONDANSETRON 4 MG/2 ML (SDV) Z0FRAN IVP PRN (09:45)
[2022-07-27] MEDS ORDERED: KETOROLAC 30 MG/ML VIAL ONE (10:15)
[2022-07-27] MEDS ORDERED: KETOROLAC 30 MG/ML VIAL IVP ONE (10:15)
[2022-07-27] MEDS ORDERED: ACHD5005 PO (10:35)
--- NOTE | 2022-07-27 15:20 | OPERATIVE REPORT ---
DATE OF SERVICE: PREOPERATIVE DIAGNOSES: 1. A 31-year-old female with migration of IUD. 2. Umbilical hernia. POSTOPERATIVE DIAGNOSES: 1. A 31-year-old female with migration of IUD. 2. Umbilical hernia. PROCEDURE: Laparoscopic retrieval of IUD, diagnostic hysteroscopy. SURGEON: Hunter Iqbal DO COVERING MACHINE TENDER: Ely Shore DNP, who was necessary for manipulation and retraction throughout the procedure. COSURGEON: Dr. Chadwick Larson who was present for umbilical hernia repair. ANESTHESIA: General endotracheal. ESTIMATED BLOOD LOSS: Minimal. URINE OUTPUT: Scant drained at the start of the procedure. FLUIDS: 800 mL lactated Ringer's solution. FINDINGS: Normal appearing external female genitalia. Normal appearing endometrial cavity with evidence of possible prior perforation, normal appearing pelvic anatomy on laparoscopy with IUD embedded into the inferior aspect of the omentum. SPECIMEN SENT: None. INDICATIONS FOR PROCEDURE: This 31-year-old female was a patient who had IUD placed approximately two months ago. Upon further evaluation and followup, IUD strings were not seen. She reported some significant cramping over this since subsided since having the IUD placed. I discussed with the patient the need for removal of this due to displacement. Ultrasound showed that is not in the uterus; however, flat plate x-ray did show that there was IUD present in the pelvis. Due to this finding, I discussed with the patient, surgical retrieval of this with laparoscopy potentially needed. Risks of procedure were discussed with the patient in detail. She also wished to have an umbilical hernia repair, which she had sought care with Dr. Larson to have done. Therefore, we decided to do this at the same time. After all of her questions were answered, consent was obtained, the patient was taken to the operating room. OPERATIVE REPORT IN DETAIL: Once in the operating room, anesthesia was found to be adequate, placed in dorsal lithotomy position, prepped and draped in normal sterile fashion. Timeout was performed. The bladder was drained using straight catheterization. A weighted speculum inserted to the patient's vagina. Right angle retractor was used to visualize the cervix, which was grasped at 12 o'clock position using an Allis clamp. I then gently sound the uterine cavity, depth was found to be 8 cm. I then introduced a hysteroscope with normal saline with visual medium into the uterus where I am able to visualize the endometrium, which shows no evidence of an intrauterine device. Bilateral tubal ostia were noted to be within normal limits. There is no intrauterine masses or defects. I then removed all instruments from the patient's vagina after I placed a Kronner uterine manipulator in the uterus and performed a change of gloves and went into the abdomen where infraumbilically I infiltrated this area using 0.25% Marcaine. I introduced the Veress needle until intraperitoneal placement was confirmed using a saline drop test. An opening pressure of 2 mmHg was noted, proceeded with CO2 insufflation to maximum pressure of 15 mmHg, at which point I extended this incision to 5 mm and introduced a 5 mm blunt laparoscopic trocar until intraperitoneal placement was confirmed using the laparoscope. There was no evidence of damage upon my entry site. A brief scan of the upper abdominal anatomy appears to be grossly normal. I then had the patient placed in steep Trendelenburg where I am able to visualize the IUD on the inferior aspect of the omentum coming out of the pelvis. I placed a suprapubic trocar. This was a 5 mm trocar, it is placed under direct visualization of laparoscope. Once this was in place, I am able to retrieve the IUD out of the omentum using a grasper. Once this was done, Dr. Larson takes over the case to perform the umbilical hernia repair. The patient tolerated my portion of the procedure well. ESTIMATED BLOOD LOSS: Minimal for my portion of the procedure. Kronner uterine manipulator was removed after my portion of the procedure is completed. Job ID: [id number] DocumentID: [id number] Dictated Date: 07/27/2022 08:48:04 Welt Stitch Cleaner Date: 07/27/2022 15:19:55 Dictated By: HUNTER IQBAL DO
--- NOTE | 2022-07-27 16:27 | OPERATIVE REPORT ---
DATE OF SERVICE: 07/27/[address]IAN [address] Jerry Srivastava. PREOPERATIVE DIAGNOSIS: Symptomatic reducible umbilical hernia. POSTOPERATIVE DIAGNOSIS: Symptomatic reducible umbilical hernia with the preperitoneal fat within the hernia sac. PROCEDURE: Primary open umbilical hernia repair. SURGEON: Chadwick Isbell MD. BONDING AGENT: Jose Rondon APRN. ANESTHESIA: General endotracheal. ESTIMATED BLOOD LOSS: Minimal. FINDINGS: Symptomatic reducible umbilical hernia with the preperitoneal fat within the hernia sac. DISPOSITION: The patient tolerated the procedure well. INDICATIONS: The patient is a 31-year-old female who developed an outpouching in the umbilical region during her pregnancies. She reports that over time this has grown larger in size and become painful. She was seen in the office and found to have a reducible asymptomatic umbilical hernia. The patient is also scheduled for removal of IUD as well as laparoscopy and will be scheduled in conjunction with GEOLOGICAL SCIENCE TEACHER with this procedure. She is otherwise eating well and having normal bowel movements. DESCRIPTION OF PROCEDURE: The patient was brought to the operating room, laid supine on the table. After adequate IV pain and sedative medications and general endotracheal intubation, Dr. Srivastava proceeded with his laparoscopic procedure and removal of the intraperitoneal IUD device. We then proceeded with 4-quadrant abdominal exploration. There was an umbilical hernia identified, which is reducible and preperitoneal fat within the hernia sac. The hernia defect was small and less than 1 cm in size. It was decided to proceed with open primary repair and the skin incision from the 5 mm port was extended bilaterally using a 15 blade. The hernia sac was identified and completely dissected out using blunt dissection as well as electrocautery with only preperitoneal fat within the hernia sac. We then proceeded with transverse primary repair using 0 Prolene interrupted sutures until the defect was completely obliterated. Good hemostasis was observed. The umbilicus was then imbricated and sutured to the fascia and the skin was closed using 4-0 Monocryl running subcuticular suture. Wound was then cleaned and covered with Dermabond, followed by tonsil sponges, 4 x 4 gauze and large Op-Site. The patient tolerated the procedure well. We will start IV normal pain medication as well as a clear liquid diet. When she is tolerating clears, has good pain control with oral pain medications, ambulating well, we will discharge her home. She will be instructed to do no heavy lifting or exertion for the next two weeks as well. Job ID: [id number] DocumentID: [id number] Dictated Date: 07/27/2022 09:26:42 Pig Machine Operator Date: 07/27/2022 16:26:24 Dictated By: CHADWICK ISBELL MD
== END 2022-07-27 11:30 | disposition home or self-care (01) ==
LOC: SDC 06:01
PROVIDERS: ATTEND Surgery
DX: K42.9 Umbilical hernia without obstruction or gangrene (principal); T83.89XA Other specified complication of genitourinary prosthetic devices, implants and grafts, initial encounter
CPT/HCPCS: 84703; 87081